=== PATIENT | male | born 1985 | race Caucasian/White ===

== ENCOUNTER 2017-08-15 07:47 | Emergency (ER) | payer SELFPAY ==
[~2017-08-15] VITALS: Ht 180.3 cm; Wt 111.4 kg
[2017-08-15 07:53] VITALS: TEMP 36.3; Ht 180.3 cm; Wt 111.4 kg
[2017-08-15 08:03] VITALS: O2SAT 97
[2017-08-15] MEDS ORDERED: MECLIZINE HCL 25 MG TAB PO STA (08:19)
[2017-08-15 08:39] LABS: BASO % 0.9 %; BASO ABS # 0.06 K/uL (0-0.2); COMPLETE YES; EOS % 3.8 %; HEMATOCRIT 47.3 % (42-52); IG% 0.2 %; LYMPH % 40.7 %; LYMPH ABS # 2.66 K/uL (1.2-3.4); MEAN CELL VOLUME 88.1 fL (80-100); MEAN PLATELET VOLUME 9.3 fL (7.4-10.4); MONO % 10.6 %; NEUT % 43.8 %; PLATELET COUNT 240 K/uL (130-400); RED BLOOD COUNT 5.37 M/uL (4.7-6.1); WHITE BLOOD COUNT 6.54 K/uL (4.8-10.8)
[2017-08-15 08:58] LABS: BUN/CREATININE RATIO 17.3 (10-20); CALCIUM 8.5 mg/dl (8.5-10.1); CREATININE 0.87 mg/dl (0.60-1.40)
[2017-08-15] MEDS ORDERED: MECL1TAB42 PO (09:25)
[2017-08-15 09:40] VITALS: BP 139/74; PULSE 77; O2SAT 99
--- NOTE | 2017-08-15 16:02 | EMERGENCY ROOM VISIT NOTE ---
ED Visit Note First contact with patient: 07:57 Chief Complaint: Vertigo. History of Present Illness: Mr. Lopez is a 32-year-old white male who ambulates into the ED accompanied by female friend complaining of vertigo. Historically patient denies any previous significant illnesses/diseases. Patient reports she's been feeling fine for the last couple of weeks and just has noted some mild nasal congestion. Patient reports he awoke from sleep this morning to go to work and when he stood up he had an acute onset of room spinning sensations. Since that time the symptoms have been constant but has slightly waxed and waned in intensity. He was able to do all his normal preparations to go to work. On the way to work he was driving and he stopped to buy some coffee and the dizziness increased. He felt like he could not walk straight and when he was walking he was leaning slightly to the right and forward. His symptoms slightly worsened with head movement. He did not identify any alleviating factors related to the symptoms. He denies any associated symptoms including fevers, chills, sweats, skin eruptions, skin color changes, ear pain, ear drainage, hearing changes, recent head trauma, visual changes, hearing changes, difficulty speaking, difficulty swallowing, difficulty coordinating body movements, chest pain, palpitations, shortness of breath, abdominal pain, nausea, vomiting, neck/back pain, new medication use, alcohol abuse, illicit drug use. Review of Systems: As noted above in history of present illness. All body systems were reviewed and found to be negative as noted above. Past Medical History: Patient denies. Current Medications: Patient denies. Allergies to Medications: Patient denies. Social History: Patient is currently employed; he feels safe in his home environment; he admits to tobacco use. Physical Examination: Vital Signs: Date Time Temp Pulse Resp B/P (MAP) Pulse Ox O2 Delivery O2 Flow Rate FiO2 08/15/17 09:40 77 18 139/74 99 08/15/17 08:32 79 16 148/82 97 08/15/17 08:03 97 Room Air 08/15/17 08:02 76 143/79 85 140/81 78 130/84 08/15/17 08:01 85 08/15/17 07:53 36.3 76 18 148/81 96 GENERAL: 32-year-old male in mild distress due to symptoms, nontoxic-appearing, afebrile and hemodynamically stable. NEUROLOGICAL: Awake, alert and oriented to person, place and time. Answering questions appropriately and following commands. Normal gait. Good hand eye coordination. No focal motor or sensory deficits. Romberg test negative. Pronator drift test negative. Cranial nerves II through XII grossly intact. Able to spell backwards. Good short-term and long-term recall. Normal rapid alternate movements of the hands. Normal heel faye test. [place]-Hallpike maneuver negative. SKIN: Warm, dry and pink. No soft tissue eruptions or trauma noted. HEENT: Atraumatic and normocephalic. External ears are nontender. Auditory canals are patent. Tympanic membranes are not erythematous or edematous. PERRLA. EOMI with 2-3 beats of nystagmus. Sclera white and conjunctiva pink. No drainage from naris. Oral cavity moist and pink. Pharynx is nonerythematous or edematous. Speech normal. No lymphadenopathy. Trachea midline. No jugular venous distention. No carotid bruits. BACK: No tenderness over the bony spine. No CVA tenderness. THORAX: Lungs sounds are clear to auscultation and equal bilaterally with symmetrical chest wall. No wheezing, rales or rhonchi. No crepitus, tenderness , subcutaneous air or deformities noted. HEART: Regular rate and rhythm. No gallops, rubs or murmurs are appreciated. ABDOMEN: Flat, soft and nontender. Positive bowel sounds in all quadrants. No guarding, rigidity or organomegaly. EXTREMITIES: Moves all extremities well on command and with purpose. All distal neurovascular statuses are intact and equal bilaterally. No calf tenderness or cords. ED Course: Patient is assessed as noted above. Patient's medication list was reviewed. Laboratory Testing: Test 08/15/17 08:30 Range/Units White Blood Count 6.54 4.8-10.8 K/uL Red Blood Count 5.37 4.7-6.1 M/uL Hemoglobin 16.1 14.0-18.0 g/dL Hematocrit 47.3 42-52 % Mean Corpuscular Volume 88.1 80-100 fL Mean Corpuscular Hemoglobin 30.0 25-34 pg Mean Corpuscular Hemoglobin Concent 34.0 32-36 g/dl Platelet Count 240 130-400 K/uL Mean Platelet Volume 9.3 7.4-10.4 fL Neutrophils (%) (Auto) 43.8 % Lymphocytes (%) (Auto) 40.7 % Monocytes (%) (Auto) 10.6 % Eosinophils (%) (Auto) 3.8 % Basophils (%) (Auto) 0.9 % Neutrophils # (Auto) 2.87 1.4-6.5 K/uL Lymphocytes # (Auto) 2.66 1.2-3.4 K/uL Monocytes # (Auto) 0.69 0.11-0.59 K/uL Eosinophils # (Auto) 0.25 0-0.5 K/uL Basophils # (Auto) 0.06 0-0.2 K/uL RDW Standard Deviation 43.0 36.4-46.3 fL RDW Coefficient of Variation 13.4 11.5-14.5 % Immature Granulocyte % (Auto) 0.2 % Immature Granulocyte # (Auto) 0.01 0.00-0.02 K/uL Sodium Level 139 136-145 mmol/L Potassium Level 4.0 3.5-5.1 mmol/L Chloride Level 105 98-107 mmol/L Carbon Dioxide Level 26 21-32 mmol/L Anion Gap 8.0 3-11 mmol/L Blood Urea Nitrogen 15 7-18 mg/dl Creatinine 0.87 0.60-1.40 mg/dl Est Creatinine Clear Calc Drug Dose 156.1 ml/min Estimated GFR () 133.3 Estimated GFR (Non- 115.0 BUN/Creatinine Ratio 17.3 10-20 Random Glucose 93 70-99 mg/dl Calcium Level 8.5 8.5-10.1 mg/dl Total Bilirubin 0.9 0.2-1 mg/dl Direct Bilirubin 0.2 0-0.2 mg/dl Aspartate Amino Transf (AST/SGOT) 15 15-37 U/L Alanine Aminotransferase (ALT/SGPT) 25 12-78 U/L Alkaline Phosphatase 62 45-117 U/L Total Protein 7.3 6.4-8.2 gm/dl Albumin 4.0 3.4-5.0 gm/dl EKG: Was read by myself and shows sinus rhythm with sinus arrhythmia. Ventricular rate [address] elevations consistent with early repolarization. Compared to previous from 2004 and no acute changes were noted. Orthostatics were negative. Patient was given 50 mg of Meclizine by mouth for his vertigo. Patient was reassessed multiple times during his stay in the emergency department. On my last reassessment I did ambulate the patient around the department and he had no difficulty with ambulation and reported no return of his vertigo symptoms. Patient's case was reviewed with Dr. Tong; we agreed on diagnostic approach, treatment, disposition and plan. Patient was educated about today's findings and instructed on his treatment plan ; he verbalized understanding and agreement with this plan. Clinical Impression: Vertigo. Decision-Making: Initially my differential diagnosis I considered benign positional vertigo, Mnire's disease, migraine headache, vestibular neuritis and other causes. Patient's blood pressure: Elevated. Blood pressure disposition: Situational. Disposition: Patient discharged home in stable condition accompanied by his mother and fiance; prior to departure he was reassessed and subjectively reported he was feeling much better. Plan: Patient was prescribed meclizine 0.5 mg every 6 hours as needed for dizziness/ vertigo. Patient was encouraged to stay well-hydrated. Patient was encouraged to rest for the next 48 hours and do no activities that require his fall attention or potentially dangerous. Patient was encouraged to follow-up with family physician for recheck in the next few days. Patient was encouraged return ED for worsening vertigo, vomiting, any new abnormal neurological symptoms we discussed or any new/concerning symptoms.
== END 2017-08-15 09:41 | disposition home or self-care (01) ==
LOC: C.EDB 07:48
DX: R42 Dizziness and giddiness (principal); F17.200 Nicotine dependence, unspecified, uncomplicated